=== PATIENT | female | born 1970 | race Caucasian/White ===

== ENCOUNTER → 2017-09-22 16:56 | Outpatient (CLI) | payer OTHER, SELFPAY | PROVIDERS: Family Provider Family Medicine; PCP Family Medicine; Visit Provider Obstetrics & Gynecology | DX: Z12.31 Encounter for screening mammogram for malignant neoplasm of breast (principal) | CPT/HCPCS: 77063; 77067 ==

== ENCOUNTER → 2019-02-02 10:42 | Outpatient (CLI) | payer OTHER, SELFPAY ==
--- NOTE | 2019-02-02 11:02 | BI_ITS ---
MAMMOGRAPHY - BILATERAL SCREENING REASON FOR EXAM: Female, 48 years old. Routine annual screening examination. PERTINENT HISTORY: Non-contributory. Occasional tenderness in the right lower outer quadrant. TECHNIQUE: Digital bilateral breast kaye (3D mammographic acquisition) in the CC and MLO projections. 2-D mediolateral oblique (MLO) and craniocaudad (CC) views of both breasts were obtained. CAD: Full Field Digital Mammography with Computer Added Detection was performed. COMPARISON: Comparison is made with prior examination dated September 22, 2017 and June 18, 2013. FINDINGS: Breast Composition: The breasts are heterogeneously dense, which may obscure small masses. There are no dominant masses or suspicious calcifications. No other significant abnormalities are identified. There has been no significant change since the prior study. BI/SCREEN MAMM (CAD) W/KAYE BILAT IMPRESSION: Stable bilateral screening mammogram. Yearly follow-up mammogram recommended. (A) ASSESSMENT CATEGORY: BIRADS Category 1: Negative. A letter regarding these results will be sent to the patient by the facility within 30 days. Approximately 10% of breast cancers are not detected by mammography. A normal mammogram should not delay biopsy of a clinically suspicious abnormality. [id number] Electronically Signed: Jarod Hastings, at 13:17 EST , Service support ,
== END ==
PROVIDERS: Family Provider Family Medicine; PCP Family Medicine; Referring Provider Obstetrics & Gynecology; Visit Provider Obstetrics & Gynecology
DX: Z12.31 Encounter for screening mammogram for malignant neoplasm of breast (principal)
CPT/HCPCS: 77063; 77067

== ENCOUNTER → 2020-02-04 10:53 | Outpatient (CLI) | payer OTHER, SELFPAY ==
--- NOTE | 2020-02-04 10:55 | BI_ITS ---
MAMMOGRAPHY - BILATERAL SCREENING REASON FOR EXAM: Female, 49 years old. Routine annual screening examination. PERTINENT HISTORY: Non-contributory. TECHNIQUE: Digital bilateral breast kaye (3D mammographic acquisition) in the CC and MLO projections. 2-D mediolateral oblique (MLO) and craniocaudad (CC) views of both breasts were obtained. CAD: Full Field Digital Mammography with Computer Added Detection was performed. COMPARISON: Comparison is made with prior study dated 02/02/2019 and 09/22/2017. FINDINGS: Breast Composition: The breasts are heterogeneously dense, which may obscure small masses. There are no dominant masses or suspicious calcifications. No other significant abnormalities are identified. There has been no significant change since the prior study. BI/SCREEN MAMM (CAD) W/KAYE BILAT IMPRESSION: Stable bilateral screening mammogram. Yearly follow-up mammogram recommended. (A) ASSESSMENT CATEGORY: BIRADS Category 1: Negative. A letter regarding these results will be sent to the patient by the facility within 30 days. Approximately 10% of breast cancers are not detected by mammography. A normal mammogram should not delay biopsy of a clinically suspicious abnormality. [id number] Electronically Signed: Jarod Hastings, at 12:21 EST , Service support ,
== END ==
PROVIDERS: PCP Family Medicine; Referring Provider Obstetrics & Gynecology; Visit Provider Obstetrics & Gynecology
DX: Z12.31 Encounter for screening mammogram for malignant neoplasm of breast (principal)
CPT/HCPCS: 77063; 77067

== ENCOUNTER 2020-04-25 09:00 | Outpatient (RCR) | payer OTHER, SELFPAY ==
--- NOTE | 2020-03-12 10:35 | HP.PTEVAL ---
Patient's Visit Information JAYSON CONTI is a 49 year old F referred to Physical Therapy by Dr. Manju Rinaldi DO with a diagnosis of CERVICAL SPINE RETROLISTHESIS. Date of Evaluation: 03/12/20 Physical Therapist: Malia Shelton, PT, Cert MDT - Visit Plan Frequency: 2-3x /Week Duration: 4-6 Weeks Plan: CERVICAL US, CERVCIAL AND SCAPULAR E-STIM WITH MH, POSTURE CORRECTION/STRENGTHENING, INSTRUCTION IN APPROPRIATE BODY MECHANICS AND ACTIVITY MODIFICATIONS. PHOENIX UE ROM, STRETCHING AND STRENGTHENING. FOCUS ON STABILITY MORE THAN FLEXABILITY. HEP INSTRUCTION. CONSIDER: REP RET IN SITTING. REP RET IN LYING. SCAP SQUEEZES. DEEP NECK FLEXOR LIFT. PRONE W'S. UE WALL SLIDES. PRONE ROWS. UE TBAND WALL WALKS. ANTERIOR/MIDDLE SCALENE STRETCH. UPPER TRAP STRETCH. LEVATOR SCAPULAE STRETCH. CHEST/PEC MAJOR AND MINOR STRETCH - Subjective Diagnosis: CERVICAL SPINE RETROLISTHESIS. 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 GOING BACK TO IN PERSON LECTURES NEXT WEEK BUT STILL DOING IT THROUGH THE COMPUTER TOO BECAUSE SOME STUDENTS STILL REMOTE. 1/2 TRAVEL TIME TO WORK. Disability: NO. Present symptoms: NUMBNESS ALONG THE OUTSIDE OF RIGHT ARM AND SORENESS IN RIGHT ELBOW. PINKY AND RING FINGER NUMBNESS. SOME PAIN IN RIGHT SHOULDER AND SOMETIMES BURNING. INTERMITTENT RIGHT NECK PAIN. NO L UE SX'S. NO FRANCOIS'S. SOME WEAKNESS POSSIBLE AT TIMES IN RIGHT UE TOO. INTERMITTENT POPPING/SLIDING IN RIGHT SHLD WITH CERTAIN YOGA MOVES AND INTERMITTENT RARE SHARP R SHLD BLADE PAINS. ALSO HAS INTERMITTENT LOWER NECK POPPING AND USUALLY FEELS BETTER AFTER. Present since: SEP 2019. Pain Scale: Worst - 2/10 Least - 0/10. Currently: 0/10. Commenced as a result of: NO APPARENT REASON. Symptoms at onset: R UE ACHINESS. Worse: RIGHT SDLY, SLEEPING WITH A PILLOW, RANDOM. Better: REMOVING PILLOW, AVOIDING RIGHT SDLY, MAYBE IBUPROFEN. Disturbed sleep: YES. Previous history/Previous treatment: UNREMARKABLE. This episode: IBUPROFEN, PT CONSULT. Dizziness: NO. Tinnitis: NO. Nausea: YES - IN THE LAST DAY OR SO FOR NO APPARENT REASON. Shortness of Breath: NO. Difficulty Swollowing: NO. Gait: NORMAL. Accidents: NO. Unexplained weight loss: NO. Imaging: RECENT NECK X-RAYS: PMH/Recent major surgery: GRAVES DZ TREATED WITH THYROID PROCEEDURE, 2017 LUMBAR MICRODISCECTOMY WITH RESIDUAL L FOOT NUMBNESS - WONDERING IF SHE WAITED TO LONG TO HAVE SX. OTHER: DX'S FROM DR. RINALDI: 1. Retrolisthesis of vertebrae M43.10. 2. Cervical spine pain M54.2. 3. Scapular dyskinesis G25.89 - Objective Sitting Posture/Standing Posture: FAIR. Active Correction of posture: NE. Other Observations: INDEP GAIT AND TRANSFERS. Motor deficit: 65 LBS L AND 80 LBS R GRIB (PHOENIX UE DOMINANT). PHOENIX UE STRENGTH GROSSLY 5/5 WITH MMT'ING. Sensory deficit: PATIENT REOPORTS RIGHT UE TINGLING WITH PHOENIX UE LIGHT TOUCH SENSATION TESTING. ROM deficit: PHOENIX UE'S WFL. Reflexes: PHOENIX UE'S 2/3. Dural Signs: POSITIVE RIGHT UE. Cervical Mvmt Loss: Flex: MIN. Pro: NIL. Ext: MIN. Ret: MOD. RSB: NIL. LSB: NIL. R Rot: NIL. L Rot: MIN. Postural strength: FAIR. Palpation: NO ACUTE NECK OR SHLD TENDERNESS WITH PALPATION. OTHER: CERVICAL DISTRACTION TESTING IN SITTING - NE. TREATMENT: NEUROMUSCULAR REEDUCATION - RETRAINING OF MVMT AND POSTURE FOR SITTING, LYING AND STANDING ACTIVITIES. - Goals Goal 1:: DECREASE C/O NECK AND UE SX'S Goal Time Frame: 4-6 Weeks Goal 2:: IMPROVE READING, SLEEP, WORK, AND RECREATIONAL FUNCTION Goal Time Frame: 4-6 Weeks Goal 3:: INSTRUCT IN PROPHYLAXIS Goal Time Frame: 4-6 Weeks - Anticipated Interventions Patient/Client Instruction: Educate patient on: Condition, Plan of Care, Risk Factors, Benefits of Fitness Program For the Purpose of:: To improve self management Therapeutic Exercise to Include: Strength training, Body mechanics, Postural training, Flexibilty training, Neuromotor development, In an aquatic setting, Dynamic Lumbar Stabilization For the Purpose of:: To decrease pain, To increase ROM, To improve muscle performance and motor function, To increase tolerance to activity/condition/position, To improve ability of physical actions for home/community/work/leisure TENS: Yes IF ES: Yes Cryotherapy (ice pack, ice massage): Yes Thermo therapy (hot pack): Yes Ultrasound (thermal/non thermal): Yes Intermittent cervical traction: Yes - CONSIDER TX For the Purpose of:: To decrease pain, To decrease swelling/inflammation, To improve nutrient delivery to tissue Other: DECREASE NECK AND RIGHT UE PERIPHERALIZATION. Thank you for the opportunity to evaluate your patient. For Medicare and Medicare HMO plans, please review the plan of care and approve it. It will need to be FAXED BACK to us at [phone] for Medicare purposes. For Medicare only, by signing this I certify the plan of care. Please let me know if there are questions or concerns regarding this plan of care. Physician Signature: Date:
--- NOTE | 2020-04-25 10:54 | HP.PTDCSUM ---
It has been my pleasure to treat JAYSON CONTI referred by Dr. Manju Thapa, , with the diagnosis of CERVICAL SPINE RETROLISTHESIS for a total of 13 visit(s). Discharge Date: 04/25/20 Please see the following information for a summary of their discharge status. Subjective: PATIENT REPORTS SHE IS DOING VERY GOOD AND THE CHALLENGE IS GOING TO BE TO CONTINUE THE EX'S WHEN SHE IS NOT COMING TO PT AND WHEN SHE ISN'T IN PAIN. SLEEPING HAS GOT A LOT BETTER. OCCASSIONALLY WAKES UP WITH ARM NUMBNESS. SUPRISED TO NOTICE SHLD WASN'T HURTING DRIVING TODAY. STATES SHE IS DRAMATICALLY BETTER AND WHEN SX'S DO OCCUR SHE KNOW HOW TO ADDRESS IT. SOME R UE PAIN RIGHT NOW FOR NO APPARENT REASON. NECK Pain Intensity (Out of 10): 1 % Improvement: 95 Objective/Function: PATIENT WAS SEEN TODAY FOR RE-ASSESSMENT OF PROGRESS TOWARD THE SET PT GOALS AND THE NEED FOR FURTHER PHYSICAL THERAPY VS READINESS FOR DISCHARGE. ALL GOALS MET AND PATIENT IS APPROPRIATE FOR DISCHARGE. SHE IS AGREEABLE TO DISCHARGE. SHE IS INDEP WITH A HEP. SHE PLANS TO FOLLOW UP WITH DR. THAPA. UPON EXAM TODAY: Motor deficit: 70 LBS L AND 87 LBS R GRIB (PHOENIX UE DOMINANT). PHOENIX UE STRENGTH GROSSLY 5/5 WITH MMT'ING. Sensory deficit: PHOENIX UE LIGHT TOUCH SENSATION INTACT AND SYMMETRICAL. ROM deficit: PHOENIX UE'S WFL. Dural Signs: NEGATIVE PHOENIX UE'S. Cervical Mvmt Loss: Flex: NIL. Pro: NIL. Ext: MIN. Ret: MIN. RSB: NIL. LSB: NIL. R Rot: NIL. L Rot: MIN. Postural strength: GOOD. OTHER: PATIENT TOLERATED ALL INTERVENTIONS WELL TODAY AND COMMUNICATES A GOOD UNDERSTANDING OF ALL DISCHARGE INSTRUCTIONS. Goal 1:: DECREASE C/O NECK AND UE SX'S Goal Progress: Goal Met Goal 2:: IMPROVE READING, SLEEP, WORK, AND RECREATIONAL FUNCTION Goal Progress: Goal Met Goal 3:: INSTRUCT IN PROPHYLAXIS Goal Progress: Goal Met Plan: D/C. PATIENT AGREEABLE. If there are questions or concerns regarding this patient's physical therapy, please feel free to call me at [phone]. Thank you for the referral of this patient. Sincerely, Malia Shelton, PT, Cert MDT
== END 2020-04-25 19:00 | disposition home or self-care (01) ==
LOC: PT 09:00
PROVIDERS: PCP Family Medicine; Referring Provider Orthopaedic Surgery; Visit Provider Orthopaedic Surgery
DX: M43.12 Spondylolisthesis, cervical region (principal)
CPT/HCPCS: 97014; 97035; 97110; 97112; 97162; 97164; 97530; G0283

== ENCOUNTER → 2020-06-26 07:13 | Outpatient (CLI) | payer OTHER, SELFPAY ==
--- NOTE | 2020-06-26 07:14 | MRI_ITS ---
STUDY: MRI BRAIN WITHOUT CONTRAST REASON FOR EXAM: Female, 49 years old. pain TECHNIQUE: Standardized multiplanar fat and water weighted pulse sequences were obtained. COMPARISON: None. FINDINGS: Normal size of the ventricles and extra-axial spaces for the patient''s age. Normal white matter tracts of the supratentorial brain. There is no evidence for recent intracranial ischemia or other cause of cytotoxic edema on diffusion weighted imaging (DWI). Normal T2* images of the brain without demonstrated susceptibility artifact. There is no demonstrated hemosiderin stain. Normal bilateral basal ganglia. Normal thalami. There is no extra-axial fluid accumulation. Normal flow voids within the major intracranial circulation suggesting patency by spin echo criteria. Normal sella turcica, pituitary gland, infundibular stalk, optic chiasm and hypothalamus. Normal tectal plate and pineal gland. Normal midbrain, marina and medulla. Normal cerebellum. Normal basal cisterns. Normal bilateral temporal bones. Normal bilateral internal auditory canals. No demonstrated orbital abnormality, within the constraints of a routine brain study. Normal visualized paranasal sinuses. Normal calvarium and skull base. Normal visualized soft tissue structures. Normal visualized upper cervical spine. MRI/Brain without Contrast IMPRESSION: Normal unenhanced MRI of the brain. Electronically Signed: Uriel Senior MD at 8:51 EDT Tel , Service support ,
--- NOTE | 2020-06-26 07:14 | MRI_ITS ---
STUDY: MRI CERVICAL SPINE WITHOUT CONTRAST REASON FOR EXAM: Female, 49 years old. pain TECHNIQUE: Standardized fat and water weighted pulse sequences were obtained in the sagittal and axial planes. COMPARISON: None FINDINGS: Normal foramen magnum and brainstem-cervical cord junction. Normal craniovertebral junction. Normal anterior atlantoaxial articulation. Normal odontoid process. Normal cervical lordosis. Normal vertebral bodies and posterior osseous elements. C2-3: Normal endplates. Normal disc height, signal and morphology. Normal central canal and intervertebral neural foramina. C3-4: Normal endplates. Normal disc height, signal and morphology. Normal central canal and intervertebral neural foramina. C4-5: Normal endplates. Normal disc height, signal and morphology. Normal central canal and intervertebral neural foramina. C5-6: 2 mm retrolisthesis of C5 on C6 with a mild broad disc osteophyte complex produces mild spinal stenosis and mild bilateral neural foraminal stenosis. C6-7: Normal endplates. Normal disc height, signal and morphology. Normal central canal and intervertebral neural foramina. C7-T1: Normal endplates. Normal disc height, signal and morphology. Normal central canal and intervertebral neural foramina. Normal cervical cord. Normal visualized soft tissue structures. MRI/Spine Cervical (Routine) IMPRESSION: Focal degenerative disc disease at C5/C6 as described above. Electronically Signed: Uriel Senior MD at 8:53 EDT Tel , Service support ,
== END ==
PROVIDERS: PCP Family Medicine; Referring Provider Orthopaedic Surgery; Visit Provider Orthopaedic Surgery
DX: M54.12 Radiculopathy, cervical region (principal); R51.9 Headache, unspecified
CPT/HCPCS: 70551; 72141

== ENCOUNTER → 2021-02-11 10:46 | Outpatient (CLI) | payer OTHER, SELFPAY ==
--- NOTE | 2021-02-11 10:48 | BI_ITS ---
MAMMOGRAPHY - BILATERAL SCREENING 3-D TOMOSYNTHESIS REASON FOR EXAM: Female, 50 years old. SCREEN PERTINENT HISTORY: No significant family history. TECHNIQUE: 2-D mammograms and 3-D Tomosynthesis of the breast (s) were performed. CAD was performed. COMPARISON: 02/04/2020 FINDINGS: The breast composition is heterogeneously dense that can obscure small breast masses. Scattered benign calcifications are seen. No dense spiculated masses or suspicious microcalcifications are identified. No architectural distortion is identified. There is no skin thickening or retraction. There has been no significant change since the prior study. BI/SCRN MAMM (CAD)W/KAYE BILAT IMPRESSION: No mammographic signs of malignancy. Routine yearly mammograms recommended. ASSESSMENT CATEGORY: BIRADS Category 1: Negative. A letter regarding these results will be sent to the patient by the facility within 30 days. FOLLOW UP RECOMMENDATION: Yearly follow up mammogram recommended. (A) Approximately 10% of breast cancers are not detected by mammography. A normal mammogram should not delay biopsy of a clinically suspicious abnormality. Electronically Signed: Uriel Senior MD at 11:49 EST Tel , Service support ,
== END ==
PROVIDERS: PCP Family Medicine; Referring Provider Student in an Organized Health Care Education/Training Program; Visit Provider Student in an Organized Health Care Education/Training Program
DX: Z12.31 Encounter for screening mammogram for malignant neoplasm of breast (principal)
CPT/HCPCS: 77063; 77067

== ENCOUNTER 2021-05-22 10:01 | Outpatient (CLI) | payer BC, SELFPAY ==
[2021-05-22 12:17] LABS: T4 Free Direct 0.96 ng/dL (0.76-1.46)
== END 2021-05-22 23:59 | disposition home or self-care (01) ==
LOC: WOBLAB 10:03
PROVIDERS: PCP Family Medicine; Visit Provider Student in an Organized Health Care Education/Training Program
DX: E05.00 Thyrotoxicosis with diffuse goiter without thyrotoxic crisis or storm (principal); E03.9 Hypothyroidism, unspecified
CPT/HCPCS: 36415; 84439; 84443

== ENCOUNTER → 2023-06-17 | Outpatient (CLI) | payer BC, SELFPAY ==
--- NOTE | 2023-06-17 12:08 | BI_ITS ---
MAMMOGRAPHY - BILATERAL SCREENING REASON FOR EXAM: Female, 52 years old. Routine annual screening examination. PERTINENT HISTORY: Non-contributory. TECHNIQUE: Digital bilateral breast kaye (3D mammographic acquisition) in the CC and MLO projections. 2-D mediolateral oblique (MLO) and craniocaudad (CC) views of both breasts were obtained. CAD: Full Field Digital Mammography with Computer Added Detection was performed. COMPARISON: Comparison is made with prior study dated February 11, 2021 and February 04, 2020. FINDINGS: Breast Composition: The breasts are heterogeneously dense, which may obscure small masses. There are no dominant masses or suspicious calcifications. No other significant abnormalities are identified. There has been no significant change since the prior study. BI/SCRN MAMM (CAD)W/KAYE BILAT IMPRESSION: Stable bilateral screening mammogram. Yearly follow-up mammogram recommended. (A) ASSESSMENT CATEGORY: BIRADS Category 1: Negative. A letter regarding these results will be sent to the patient by the facility within 30 days. Approximately 10% of breast cancers are not detected by mammography. A normal mammogram should not delay biopsy of a clinically suspicious abnormality. [id number] Electronically Signed: Jarod Hastings MD at 13:19 EDT ,
== END | disposition home or self-care (01) ==
LOC: OPBI 12:06
PROVIDERS: PCP Family Medicine; Referring Provider Family Medicine; Visit Provider Family Medicine
DX: Z12.31 Encounter for screening mammogram for malignant neoplasm of breast (principal)
CPT/HCPCS: 77063; 77067

== ENCOUNTER → 2024-05-14 | Outpatient (CLI) | payer BC, SELFPAY ==
[2024-05-14 12:22] LABS: Absolute Neutrophil Count 4.4 X10^3/uL (2.0-7.7); Basophil# 0.05 X10^3/uL; Basophil% 0.7 % (0-1); Eosinophil# 0.08 X10^3/uL; Eosinophils% 1.1 % (0-5); Hematocrit 42.9 % (37-47); Hemoglobin 14.5 g/dL (12.0-15.0); Lymphocyte % 28.6 % (19-41); Mean Corp Hgb Conc 33.8 g/dL (32-36); Mean Corpuscular Hgb 29.7 pg (27.0-32.0); Mean Corpuscular Volume 87.7 fL (81-99); Mean Platelet Vol. 12.9 fl (6.2-12.0); Monocyte# 0.64 X10^3/uL; Monocyte% 8.7 % (0-10); NRBC Flagged by Analyzer 0 % (0-5); Neutrophil # 4.44 X10^3/uL (2.7-7.7); Neutrophil % 60.5 % (47-70); Platelet Count 255 K/mm3 (150-450); RBC Distribution Width CV 12.9 % (11.6-14.6); RBC Distribution Width SD 41.1 fl (35.1-43.9); Red Blood Count 4.89 M/mm3 (4.2-5.4); White Blood Count 7.3 K/mm3 (4.4-11.0)
[2024-05-14 12:43] LABS: Estradiol 99.3 pg/mL; Follicle Stimulating Hormone 4.1 mIU/mL
[2024-05-16 19:08] LABS: HPV APTIMA, High Risk Negative (Negative)
== END | disposition home or self-care (01) ==
PROVIDERS: PCP Family Medicine; Referring Provider Obstetrics & Gynecology; Visit Provider Obstetrics & Gynecology
DX: N95.1 Menopausal and female climacteric states (principal); Z12.4 Encounter for screening for malignant neoplasm of cervix
CPT/HCPCS: 36415; 82670; 83001; 85025; 87624; 88175; G0145

== ENCOUNTER 2024-05-18 10:50 | Outpatient (RCR) | payer BC, SELFPAY | END 2024-05-18 19:00 | disposition home or self-care (01) | LOC: PT 10:50 | PROVIDERS: PCP Family Medicine; Referring Provider Family Medicine; Visit Provider Family Medicine | DX: M25.511 Pain in right shoulder (principal) ==

== ENCOUNTER → 2024-08-06 | Outpatient (CLI) | payer BC, SELFPAY ==
--- NOTE | 2024-08-06 12:30 | BI_ITS ---
EXAM: SCRN MAMM (CAD)W/KAYE BILAT DATE: 08/06/2024 CLINICAL HISTORY: F, Age 53 y/o , SCREENING MAMMOGRAM BREAST CANCER RISK ASSESSMENT: Has not been calculated. TECHNIQUE: SCRN MAMM (CAD)W/KAYE BILAT COMPARISON: Prior exam(s) dated 06/17/2023 and 02/11/2021. FINDINGS: TISSUE DENSITY: The breast tissue is heterogeneously dense, which may obscure small masses. Bilateral Breast Mammographic Findings: There are no masses, suspicious cluster of microcalcifications, architectural distortion or secondary signs of malignancy identified in either breast. Benign-appearing round calcifications are seen in both breasts. BI/SCRN MAMM (CAD)W/KAYE BILAT IMPRESSION: Benign screening mammogram. OVERALL FINAL ASSESSMENT BI-RADS 2: BENIGN RECOMMEND ANNUAL MAMMOGRAPHIC SCREENING. RECOMMENDATION: Routine annual follow-up in 1 Year A letter with findings and recommendations will be mailed to the patient. Reading Location: [id number]
== END | disposition home or self-care (01) ==
LOC: OPBI 12:29
PROVIDERS: PCP Family Medicine; Referring Provider Obstetrics & Gynecology; Visit Provider Obstetrics & Gynecology
DX: Z12.31 Encounter for screening mammogram for malignant neoplasm of breast (principal)
CPT/HCPCS: 77063; 77067